=== PATIENT | female | born 1995 | race Caucasian/White ===

== ENCOUNTER 2022-01-29 22:06 | Observation (INO) | payer MEDICAID, SELFPAY ==
[2022-01-29 22:06] VITALS: BP 108/72; PULSE 78; RESP 16; TEMP 36.6; O2SAT 99; BMI 25.0
--- NOTE | 2022-01-29 22:16 | EDS_ITS ---
HPI History of Present Illness Chief Complaint: Substance Abuse Detail of Chief Complaint: Requesting detox from heroin Informant: patient Narrative Narrative: Patient requests help with detox from heroin. She has been shooting up heroin daily for the last 2 months. She was clean for 2 months prior to that. Last use was at noon today. She denies feeling any withdrawal symptoms at this time. [facility] Medical History HIV (human immunodeficiency virus infection) Home Medications cabotegravir-rilpivirine [Cabenuva] 0 ml IM .COMPLEX 01/29/22 [History Last Taken Unknown] Allergy/AdvReac Type Severity Reaction Status Date / Time No Known Allergies Allergy Verified 01/29/22 22:08 Social History (Updated 01/29/22 @ 22:[address] Talya Plasencia MD) Smoking Status: Never smoker substance use type: heroin ROS ROS ED Constitutional Constitutional ED: Denies chills or fever(s) Eyes Eyes: Denies change in vision ENT ENT ED: Denies sore throat Cardiovascular Cardiovascular: Denies chest pain Respiratory/Chest Respiratory/Chest: Denies cough or dyspnea Gastrointestinal Gastrointestinal: Denies abdominal pain, nausea or vomiting Genitourinary Genitourinary ED: Reports LMP (females 10-50) Details: Comment: (Current); Denies dysuria Musculoskeletal Musculoskeletal: Denies back pain Integumentary Denies rash Neurologic Neurologic: Denies headache(s) or weakness Allergic/Immunologic Allergic/Immunologic ED: Denies urticaria EXAM Physical Exam Const Vital Signs: 01/29/22 22:06 Temperature 97.8 F Temperature Source Temporal Pulse Rate 78 Respiratory Rate 16 Blood Pressure 108/72 Blood Pressure Mean 84 Pulse Ox 99 Oxygen Delivery Method Room Air Positive well nourished and well developed General Appearance ED: well developed HEENT Reports moist mucous membranes atraumatic Eyes PERRL and EOMs intact bilaterally Neck supple Lymph Lymphatic: no lymphadenopathy noted Chest Wall inspection of chest normal and palpation of chest normal Resp normal respiratory effort and clear to auscultation bilaterally Cardio regular rate and regular rhythm GI soft to palpation Back/Spine no CVA tenderness Neuro oriented x3 and no sensory deficits noted Sensorium / Orientation: alert Motor Exam: strength 5/5 throughout Psych mental status grossly normal Skin Rashes: no rashes MDM MDM MDM Narrative Medical decision making narrative: Lab work for addiction medicine obtained. Patient discussed with hospitalist to admit the patient to [facility] for the detox program. Lab Data Labs: Laboratory Results - last 24 hr 01/29/22 01/29/22 01/29/22 22:45 22:45 22:45 WBC 5.6 RBC 4.58 Hgb 12.0 Hct 37.5 MCV 81.9 MCH 26.2 L MCHC 32.0 RDW Std Deviation 39.9 RDW Coeff of Ze 13.4 Plt Count 232 MPV 9.6 Immature Gran % (Auto) 0.400 Neut % (Auto) 63.1 Lymph % (Auto) 22.0 [place] % (Auto) 7.9 Eos % (Auto) 6.1 H Baso % (Auto) 0.5 Absolute Neuts (auto) 3.5 Absolute Lymphs (auto) 1.23 Nucleated RBC % 0 Serum , Qual NEGATIVE Ur Drug Screen Comment Discharge Plan Triage Chief Complaint: Substance Abuse ED Provider: Talya Plasencia Dx/Rx/DC Orders Clinical Impression: Desire for detoxification, Heroin abuse Prescriptions: No Action Cabenuva 600 mg/3 mL- 900 mg/3 mL Suspension,Extended Release 0 ml IM .COMPLEX RF: 0 Primary Care Provider: Care Physician,No Primary Referrals: Care Physician,No Primary [Primary Care Provider] - Disposition Disposition: [facility] Care [facility]
[2022-01-29 22:57] LABS: Absolute Lymphocyte Count 1.23 X10^3/uL (0.83-4.51); Absolute Neutrophil Count 3.5 X10^3/uL (2.0-7.7); Basophil# 0.03 X10^3/uL; Basophil% 0.5 % (0-1); Eosinophil# 0.34 X10^3/uL; Eosinophils% 6.1 % (0-5); Hematocrit 37.5 % (37-47); Lymphocyte # 1.23 X10^3/ul (0.83-4.51); Mean Corpuscular Hgb 26.2 pg (27.0-32.0); Mean Corpuscular Volume 81.9 fL (81-99); Mean Platelet Vol. 9.6 fl (6.2-12.0); Monocyte# 0.44 X10^3/uL; Monocyte% 7.9 % (0-10); NRBC Flagged by Analyzer 0 % (0-5); Neutrophil # 3.54 X10^3/uL (2.7-7.7); Neutrophil % 63.1 % (47-70); Platelet Count 232 K/mm3 (150-450); RBC Distribution Width CV 13.4 % (11.6-14.6); RBC Distribution Width SD 39.9 fl (35.1-43.9); Red Blood Count 4.58 M/mm3 (4.2-5.4); White Blood Count 5.6 K/mm3 (4.4-11.0)
--- NOTE | 2022-01-29 22:57 | HP.PCM.HOS_ITS ---
HPI - General General Date of Admission: 01/29/22 Date of Service: 01/29/22 Chief Complaint: Opiate abuse, detox request. HPI Narrative The patient is a 26 y/o F w/ PMHx: Anxiety, HIV on antiviral regimen, Hepatitis C (treated), Polysubstance abuse including IV heroin 3 gm daily who presents to the [facility] ED on 01/29/22 with history of impending acute opiate withdrawal onset starting this evening following last dose at ~ noon on day of presentation with abdominal pain/cramping, generalized body aches and pains, fatigue, restless legs and agitation. Patient interested in attaining clean status. She notes having been through detox programs x 3 with most recent 4 months prior to current presentation in [facility] with clean status following x 2 months with relapse. Patient states previously she has been using drugs with her boyfriend who is also a substance user. She notes that they are currently not together because of her plans to be in a prolonged treatment program. Work-up in the ED included T97.8, heart rate 78, BP 108/72, respiratory rate 16, 99% on room air, CBC with WC 5.6, hemoglobin 12, platelet 232 without marked shift, CMP not marked appearing, serum negative, UDS with positive opiates, amphetamine, MDMA, cocaine, without alcohol less than 3. [facility] Medical History (Updated 01/30/22 @ 00:[address] Karina Correia MD) Anxiety Former tobacco use Hepatitis C HIV (human immunodeficiency virus infection) Substance abuse Home Medications cabotegravir-rilpivirine [Cabenuva] 0 ml IM .COMPLEX 01/29/22 [History Last Taken Unknown] Allergy/AdvReac Type Severity Reaction Status Date / Time No Known Allergies Allergy Verified 01/29/22 22:08 other (Patient denies any marked maternal or paternal family history including HD, DM, CA.) Surgical History (Updated 01/30/22 @ 00:[address] Karina Correia MD) No history of previous surgery Social History (Updated 01/30/22 @ 00:[address] Karina Correia MD) household members: other details: Living with her parents. Smoking Status: Former smoker how long ago did patient quit smoking: Quit 3 years prior, prior to this 1/2 ppd since teen. alcohol intake: never substance use type: crack/cocaine, heroin, amphetamines, opiates, IV drugs and other details: Currently reports primarily 3 gm daily heroin. ROS ROS Narrative Admission Review of Systems: CONSTITUTIONAL: No weight loss, fever, chills, + weakness or fatigue. HEENT: + Rhinorrhea. Eyes: No visual loss, blurred vision, double vision or yellow sclerae. Ears, Nose, Throat: No hearing loss, sneezing, congestion or sore throat. SKIN: + Several track ramos and skin abrasions. CARDIOVASCULAR: No chest pain, chest pressure or chest discomfort, palpitations, edema, orthopnea, syncopal events. RESPIRATORY: No shortness of breath, cough or sputum, wheezing, hemoptysis. GASTROINTESTINAL: + anorexia, abdominal cramping, No nausea, vomiting or diarrhea, melena, BRBPR. GENITOURINARY: No dysuria, frequency, urgency or retention. NEUROLOGICAL: No headache, dizziness, syncope, paralysis, ataxia, numbness or tingling in the extremities, focal weakness, change in bowel or bladder control, seizure. MUSCULOSKELETAL: + muscle, back pain, joint pain or stiffness. HEMATOLOGIC: No anemia, bleeding or bruising. LYMPHATICS: No enlarged nodes. No history of splenectomy. PSYCHIATRIC: + history of depression or anxiety. ENDOCRINOLOGIC: No reports of sweating, cold or heat intolerance. No polyuria or polydipsia. ALLERGIES: No history of asthma, hives, eczema or rhinitis. Vital Signs Vital Signs Vital Signs: 01/29/22 22:06 Temperature 97.8 F Temperature Source Temporal Pulse Rate 78 Respiratory Rate 16 Blood Pressure 108/72 Blood Pressure Mean 84 Pulse Ox 99 Oxygen Delivery Method Room Air Weight Weight: 150 lb Body Mass Index (BMI) 25.0 Physical Exam Narrative Physical Examination: General: Awake, alert, oriented x 3 and cooperative, seated upright in the ED bed, fatigued, yawning Skin: Normal color, normal turgor, no icterus, no cyanosis except significant very staged track ramos on the extremities. HEENT: AT/NC, EOMI, PERRLA, moderately dry MM, no carotid bruits or JVD noted. Lungs: Diminished, greater bases, appropriate effort, no rales, ronchi or wheezing. Heart: Currently regular rate and rhythm; no gallop, rub audible. Abdomen: Soft, mild generalized discomfort with palpation but no rebound or guarding, ND, mildly hyperactive BS, no HSM. Extremities: No cyanosis, clubbing, or edema. Neurological: Patient awake, alert, oriented as noted, cognitive function in tact; pupils equally reactive to light and accommodation, cranial nerves II-XII grossly normal, moving all 4 extremities, no focal deficits, strength preserved, fatigued appearing, mildly restless. Psychiatric: Affect appears restless, fatigued appearing, no acute evidence of depressive or anxiety feelings but underlying history. Results Lab / Micro Data Result Diagrams: 01/29/22 22:45 01/29/22 22:45 Labs: Laboratory Results - last 24 hr 01/29/22 22:45: WBC 5.6, RBC 4.58, Hgb 12.0, Hct 37.5, MCV 81.9, MCH 26.2 L, MCHC 32.0, RDW Std Deviation 39.9, RDW Coeff of Ze 13.4, Plt Count 232, MPV 9.6, Immature Gran % (Auto) 0.400, Neut % (Auto) 63.1, Lymph % (Auto) 22.0, [place] % (Auto) 7.9, Eos % (Auto) 6.1 H, Baso % (Auto) 0.5, Absolute Neuts (auto) 3.5, Absolute Lymphs (auto) 1.23, Nucleated RBC % 0 01/29/22 22:45: Ur Drug Screen Comment Assessment & Plan Assessment/Plan (1) Desire for detoxification: (2) Heroin abuse: PLAN: The patient is a 26 y/o F w/ PMHx: Anxiety, HIV on antiviral regimen, Hepatitis C (treated), Polysubstance abuse including IV heroin 3 gm daily who presents to the [facility] ED on 01/29/22 with history of impending acute opiate withdrawal onset starting this evening following last dose at ~ noon on day of presentation. #1. Acute Opiate Withdrawal: Will admit to [facility], routine labs including CBC, CMP, urine for drug screen obtained in the ED as noted, will initiate and continue on protocol with tapering course of Subutex, as needed tylenol, ibuprofen, bowel regimen, gabapentin, Bentyl, Vistaril, methocarbamol, clonidine, PRN nightly trazodone for insomnia, IV fluids, IV antiemetics. Once patient clinically improved and completion of taper nearing will plan consultation with case management for transition to next level of rehabilitation care. #2. Polysubstance Abuse, IVDA ongoing, History of Hepatitis C, Chronic as well as HIV: Patient from list is on chronic IM antiviral regimen, need to clarify when last used, reports having been treated for hepatitis C in addition, amenable to hepatitis panel to assure no hepatitis B coinfection, pending. Encourage continued outpatient follow-up with ID. #3. Former tobacco use: Encourage continued tobacco cessation. #4. DVT prophylaxis: Low risk, encourage ambulation. Charges/Coding Visit Charges Inpatient E&M: 80941 Init Hosp L2
[2022-01-29 23:06] LABS: Internal QC Validated? YES +Cl - CLEAR BKGD; Pregnancy, Serum, hCG Quali. NEGATIVE Negative
[2022-01-29 23:15] LABS: ALB/GLOB Ratio 0.7 RATIO (0.9-2.4); AST(SGOT) 19 U/L (15-37); Alanine Aminotransfer ALT/SGPT 22 U/L (13-56); Albumin, Serum 3.2 g/dL (3.2-5.0); Alkaline Phosphatase 113 U/L (45-117); Anion Gap 6 (5-15); BUN 17 mg/dL (7-18); BUN/Creat Ratio 20.4 RATIO (10-20); Calcium,Total 8.5 mg/dL (8.5-10.1); Chloride 105 mmol/L (98-107); Creatinine, Serum 0.83 mg/dL (0.55-1.02); EST Glomerular Filtration Rate 88 mL/min (>60); Est Glom Filt Rate - Afr Amer 106 mL/min (>60); Estimated Creatinine Clearance 92.42 ml/min; Globulin 4.3 g/dL (2.2-4.2); Glucose 83 mg/dL (74-106); Potassium 3.9 mmol/L (3.5-5.1); Protein, Total 7.5 g/dL (6.4-8.2); Sodium Level 138 mmol/L (136-145)
[2022-01-29 23:16] LABS: Amphetamine Urine VISTA POSITIVE (<1000 ng/mL); Barbiturate Urine VISTA NEGATIVE (< 200 ng/mL); Benzodiazepine Urine VISTA NEGATIVE (< 200 ng/mL); Cocaine Urine VISTA POSITIVE (< 300 ng/mL); Ecstacy Urine VISTA POSITIVE (< 500 ng/mL); Methadone Urine VISTA NEGATIVE (< 300 ng/mL); PCP Urine VISTA NEGATIVE (< 25 ng/mL); THC Urine VISTA NEGATIVE (< 50 ng/mL); Vista UDS pH Range 5
[2022-01-29 23:27] LABS: Alcohol, Blood (Medical)-Serum < 3.0 mg/dL
[2022-01-29 23:59] VITALS: BP 99/63; PULSE 71; RESP 18; TEMP 36.8; O2SAT 99
[2022-01-30] VITALS (8 sets, daily range): BP systolic 92–140; BP diastolic 47–76; PULSE 64–87; RESP 16–20; TEMP 36.6–36.8; O2SAT 92–99; BMI 25.0
[2022-01-30] MEDS: traZODone 100 MG Tablet PO (00:37)
[2022-01-30 06:44] LABS: Absolute Lymphocyte Count 1.55 X10^3/uL (0.83-4.51); Absolute Neutrophil Count 2.6 X10^3/uL (2.0-7.7); Basophil# 0.03 X10^3/uL; Basophil% 0.6 % (0-1); Eosinophil# 0.31 X10^3/uL; Eosinophils% 6.1 % (0-5); Hematocrit 33.1 % (37-47); Hemoglobin 10.3 g/dL (12.0-15.0); Lymphocyte # 1.55 X10^3/ul (0.83-4.51); Lymphocyte % 30.6 % (19-41); Mean Corp Hgb Conc 31.1 g/dL (32-36); Mean Corpuscular Hgb 25.3 pg (27.0-32.0); Mean Corpuscular Volume 81.3 fL (81-99); Mean Platelet Vol. 9.7 fl (6.2-12.0); Monocyte% 11.9 % (0-10); NRBC Flagged by Analyzer 0 % (0-5); Neutrophil # 2.56 X10^3/uL (2.7-7.7); Neutrophil % 50.6 % (47-70); Platelet Count 225 K/mm3 (150-450); RBC Distribution Width CV 13.6 % (11.6-14.6); RBC Distribution Width SD 39.8 fl (35.1-43.9); Red Blood Count 4.07 M/mm3 (4.2-5.4); White Blood Count 5.1 K/mm3 (4.4-11.0)
[2022-01-30 07:29] LABS: ALB/GLOB Ratio 0.8 RATIO (0.9-2.4); AST(SGOT) 19 U/L (15-37); Alanine Aminotransfer ALT/SGPT 18 U/L (13-56); Albumin, Serum 2.8 g/dL (3.2-5.0); Alkaline Phosphatase 97 U/L (45-117); Anion Gap 7 (5-15); BUN 15 mg/dL (7-18); BUN/Creat Ratio 18.2 RATIO (10-20); Chloride 105 mmol/L (98-107); Creatinine, Serum 0.82 mg/dL (0.55-1.02); EST Glomerular Filtration Rate 89 mL/min (>60); Est Glom Filt Rate - Afr Amer 107 mL/min (>60); Estimated Creatinine Clearance 89.78 ml/min; Globulin 3.7 g/dL (2.2-4.2); Glucose 98 mg/dL (74-106); Potassium 3.4 mmol/L (3.5-5.1); Protein, Total 6.5 g/dL (6.4-8.2); Sodium Level 138 mmol/L (136-145)
--- NOTE | 2022-01-30 09:14 | PN.HOSP_ITS ---
Subjective Subjective No issues overnight, resting comfortably. Cina score of 0 Objective Data Objective Data Vital Signs: Vital Signs Temp Pulse Resp BP Pulse Ox 98.1 F 67 16 92/53 L 94 01/30/22 08:55 01/30/22 08:55 01/30/22 08:55 01/30/22 08:55 01/30/22 08:55 Oxygen Delivery Method Room Air Weight: 149 lb 14.629 oz Body Mass Index (BMI) 25.0 Lab / Micro Data Result Diagrams: 01/30/22 06:16 01/30/22 06:16 Labs: Laboratory Results - last 24 hr 01/29/22 22:45: WBC 5.6, RBC 4.58, Hgb 12.0, Hct 37.5, MCV 81.9, MCH 26.2 L, MCHC 32.0, RDW Std Deviation 39.9, RDW Coeff of Ze 13.4, Plt Count 232, MPV 9.6, Immature Gran % (Auto) 0.400, Neut % (Auto) 63.1, Lymph % (Auto) 22.0, [place] % (Auto) 7.9, Eos % (Auto) 6.1 H, Baso % (Auto) 0.5, Absolute Neuts (auto) 3.5, Absolute Lymphs (auto) 1.23, Nucleated RBC % 0 01/29/22 22:45: Sodium 138, Potassium 3.9, Chloride 105, Carbon Dioxide 27.0, Anion Gap 6, BUN 17, Creatinine 0.83, Estim Creat Clear Calc 92.42, Est GFR (MDRD) Af Amer 106, Est GFR (MDRD) Non-Af 88, BUN/Creatinine Ratio 20.4 H, Glucose 83, Calcium 8.5, Total Bilirubin 0.30, AST 19, ALT 22, Alkaline Phosphatase 113, Total Protein 7.5, Albumin 3.2, Globulin 4.3 H, Albumin/Globulin Ratio 0.7 L 01/29/22 22:45: Ethyl Alcohol < 3.0 01/29/22 22:45: Urine Opiates Screen POSITIVE H, Urine Methadone Screen NEGA TIVE, Ur Barbiturates Screen NEGATIVE, Ur Phencyclidine Scrn NEGATIVE, Ur Amphetamines Screen POSITIVE H, MDMA (Ecstasy) Screen POSITIVE H, U Benzodiazepi melissa Scrn NEGATIVE, Urine Cocaine Screen POSITIVE H, U Cannabinoids Screen NEG ATIVE, Ur Drug Screen Comment 01/29/22 22:45: Serum , Qual NEGATIVE 01/30/22 06:16: WBC 5.1, RBC 4.07 L, Hgb 10.3 L, Hct 33.1 L, MCV 81.3, MCH 25.3 L, MCHC 31.1 L, RDW Std Deviation 39.8, RDW Coeff of Ze 13.6, Plt Count 225, M PV 9.7, Immature Gran % (Auto) 0.200, Neut % (Auto) 50.6, Lymph % (Auto) 30.6, [place] % (Auto) 11.9 H, Eos % (Auto) 6.1 H, Baso % (Auto) 0.6, Absolute Neuts (auto) 2.6, Absolute Lymphs (auto) 1.55, Nucleated RBC % 0 01/30/22 06:16: Sodium 138, Potassium 3.4 L, Chloride 105, Carbon Dioxide 26.0, Anion Gap 7, BUN 15, Creatinine 0.82, Estim Creat Clear Calc 89.78, Est GFR (MDRD) Af Amer 107, Est GFR (MDRD) Non-Af 89, BUN/Creatinine Ratio 18.2, Glucose 98, Calcium 8.0 L, Total Bilirubin 0.20, AST 19, ALT 18, Alkaline Phosphatase 97, Total Protein 6.5, Albumin 2.8 L, Globulin 3.7, Albumin/Globulin Ratio 0.8 L Physical Exam Const alert, oriented x3 and no apparent distress General Appearance: cooperative HEENT normocephalic and moist oral mucous membranes Eyes PERRL, EOMs intact bilaterally and conjunctivae normal Neck supple and no JVD Resp normal respiratory effort, no retractions, no use of accessory muscles and clear to auscultation bilaterally Auscultation: Negative for crackles, rales, rhonchi or wheezes Cardio regular rate, regular rhythm, S1 normal heart sound, S2 normal heart sound and no murmurs GI soft to palpation, non-tender and non-distended; Negative for hepatosplenomegaly Extremity no clubbing, cyanosis or edema Skin no rashes or lesions noted Neuro no focal motor deficits and no sensory deficits noted Psych affect normal Appearance: appropriate Assessment & Plan Assessment/Plan (1) Desire for detoxification: (2) Heroin abuse: PLAN: 1. Acute opiate withdrawal/polysubstance abuse/history of hepatitis C/HIV ? She states that she has been treated for hepatitis C ? Continue with the opiate withdrawal protocol ? Unsure as to when she last took her HIV medication however it is an IM injec tion twice a month ? Follow-up with [facility] to discuss either outpatient management or inpatient management DVT: Ambulation Charges/Coding Visit Charges Inpatient E&M: 55629 Subs Hosp L2
[2022-01-30] MEDS: Albuterol 2.5 MG/3 ML VIAL.NEB. INHALATION (13:24)
[2022-01-31] VITALS (10 sets, daily range): BP systolic 99–114; BP diastolic 60–70; PULSE 63–99; RESP 16–18; TEMP 36.6–36.9; O2SAT 93–99
[2022-01-31] MEDS: Albuterol 2.5 MG/3 ML VIAL.NEB. INHALATION ×3 (07:31→13:50)
--- NOTE | 2022-01-31 08:25 | PCM.PN.HOSP ---
Subjective Subjective Doing well, no issues overnight. Cina score of 2 Objective Data Objective Data Vital Signs: Vital Signs Temp Pulse Resp BP Pulse Ox 98.4 F 74 18 100/64 95 01/31/22 04:41 01/31/22 07:31 01/31/22 07:31 01/31/22 04:41 01/31/22 07:31 Oxygen Delivery Method Room Air Weight: 149 lb 14.629 oz Body Mass Index (BMI) 25.0 Lab / Micro Data Result Diagrams: 01/30/22 06:16 01/30/22 06:16 Physical Exam Narrative Const alert, oriented x3 and no apparent distress General Appearance: cooperative HEENT normocephalic and moist oral mucous membranes Eyes PERRL, EOMs intact bilaterally and conjunctivae normal Neck supple and no JVD Resp normal respiratory effort, no retractions, no use of accessory muscles and clear to auscultation bilaterally Auscultation: Negative for crackles, rales, rhonchi or wheezes Cardio regular rate, regular rhythm, S1 normal heart sound, S2 normal heart sound and no murmurs GI soft to palpation, non-tender and non-distended; Negative for hepatosplenomegaly Extremity no clubbing, cyanosis or edema Skin no rashes or lesions noted Neuro no focal motor deficits and no sensory deficits noted Psych affect normal Appearance: appropriate Assessment & Plan Assessment/Plan (1) Desire for detoxification: (2) Heroin abuse: PLAN: 1. Acute opiate withdrawal/polysubstance abuse/history of hepatitis C/HIV ? She states that she has been treated for hepatitis C ? Continue with the opiate withdrawal protocol ?States that she took her HIV medication about 2 weeks ago when she takes it every 2 months ?She states that she is opted for inpatient rehab with [facility] DVT: Ambulation Charges/Coding Visit Charges Inpatient E&M: 40031 Subs Hosp L2
[2022-01-31] MEDS: hydrOXYzine PAM 25 MG Capsule 50 MG PO ×2 (14:05→20:05)
[2022-01-31] MEDS: Buprenorphine HCl 2 MG TAB.SUBL 4 MG SL ×2 (14:07→22:02)
[2022-01-31] MEDS: Ibuprofen 600 MG Tablet PO (15:37)
[2022-01-31] MEDS: cloNIDine HCl 0.1 MG Tablet PO (15:37)
[2022-01-31] MEDS: Gabapentin 300 MG Capsule PO (15:37)
[2022-01-31] MEDS: Methocarbamol 750 MG Tablet 1500 MG PO (15:37)
[2022-01-31] MEDS: traZODone 100 MG Tablet PO (23:10)
[2022-02-01] MEDS: hydrOXYzine PAM 25 MG Capsule 50 MG PO ×3 (01:36→10:36)
[2022-02-01 02:00] VITALS: BP 102/63; PULSE 72; RESP 16; TEMP 37.2; O2SAT 98
[2022-02-01 05:41] VITALS: BP 94/65; PULSE 70; RESP 16; TEMP 37.1; O2SAT 97
[2022-02-01] MEDS: Buprenorphine HCl 2 MG TAB.SUBL 4 MG SL ×2 (05:43→13:38)
[2022-02-01 10:30] VITALS: BP 107/70; PULSE 68; RESP 16; TEMP 36.8; O2SAT 99
[2022-02-01] MEDS: Dicyclomine 10 MG Capsule 20 MG PO (10:35)
[2022-02-01] MEDS: Methocarbamol 750 MG Tablet 1500 MG PO (10:35)
[2022-02-01] MEDS: Gabapentin 300 MG Capsule PO (10:36)
[2022-02-01 11:00] VITALS: O2SAT 98
--- NOTE | 2022-02-01 11:00 | PCM.PN.HOSP ---
Subjective Subjective Doing well awaiting admission to inpatient rehab Objective Data Objective Data Vital Signs: Vital Signs Temp Pulse Resp BP Pulse Ox 98.8 F 70 16 94/65 97 02/01/22 05:41 02/01/22 05:41 02/01/22 05:41 02/01/22 05:41 02/01/22 05:41 Oxygen Delivery Method Room Air Weight: 149 lb 14.629 oz Body Mass Index (BMI) 25.0 Lab / Micro Data Result Diagrams: 01/30/22 06:16 01/30/22 06:16 Physical Exam Const alert, oriented x3 and no apparent distress General Appearance: cooperative HEENT normocephalic and moist oral mucous membranes Eyes PERRL, EOMs intact bilaterally and conjunctivae normal Neck supple and no JVD Resp normal respiratory effort, no retractions, no use of accessory muscles and clear to auscultation bilaterally Auscultation: Negative for crackles, rales, rhonchi or wheezes Cardio regular rate, regular rhythm, S1 normal heart sound, S2 normal heart sound and no murmurs GI soft to palpation, non-tender and non-distended; Negative for hepatosplenomegaly Extremity no clubbing, cyanosis or edema Skin no rashes or lesions noted Neuro no focal motor deficits and no sensory deficits noted Psych affect normal Appearance: appropriate Assessment & Plan Assessment/Plan (1) Desire for detoxification: (2) Heroin abuse: PLAN: 1. Acute opiate withdrawal/polysubstance abuse/history of hepatitis C/HIV ? She states that she has been treated for hepatitis C ? Continue with the opiate withdrawal protocol ?States that she took her HIV medication about 2 weeks ago when she takes it every 2 months ?She states that she is opted for inpatient rehab with [facility] awaiting whether admission can be achieved today or tomorrow. DVT: Ambulation Charges/Coding Visit Charges Inpatient E&M: 94143 Subs Hosp L2
--- NOTE | 2022-02-01 12:10 | ADDICTION ---
This television writer met with PT to conduct ASAM, MSE, AUDIT, DUDIT assessments and to plan for d/c. PT A+Ox4 and participated actively. All assessments completed, and placed in PT's chart. PT plans to f/u with individual counselor at [facility] for follow-up counseling services. [facility] will provide transportation post d/c from [facility] at 2:00pm today.
[2022-02-01 13:43] VITALS: BP 96/62; PULSE 62; RESP 16; TEMP 36.9; O2SAT 98
--- NOTE | 2022-02-01 13:50 | PCM.DC ---
Discharge Instructions Diet Discharge Diet: No restrictions Activity Discharge Activity: Return to Normal Activity Dressing / Incision Call your doctor if you observe: Fever of 101 or Higher, Shortness of breath, Dizziness, Fainting spells, Swelling in the ankles, Chest pain and Increased palpitations (irregular heartbeat) Follow Up Care Test Results: Test results from this visit will be discussed in further detail at your follow-up appointment, if applicable. Discharge Plan Admission Admit Date/Time: 01/29/22 22:57 Attending Provider: Roc Matthews Primary Care Provider: Care Physician,No Primary Consulting Providers: Karina Correia Discharge Orders/Prescriptions Prescriptions: Continued Cabenuva 600 mg/3 mL- 900 mg/3 mL Suspension,Extended Release 0 ml IM .COMPLEX RF: 0 Referrals / Follow Up: Care Physician,No Primary [Primary Care Provider] - Disposition Disposition (needs filled in before D/C Order can be placed): Transfer to Another Type HCF
--- NOTE | 2022-02-01 14:13 | PCM.DC.SUM ---
Providers Date of Admission: 01/29/22 Primary Care Physician: No Primary Care Phys Reason For Visit: OPIATE WITHDRAWAL, ABUSE Diagnosis Discharge Diagnosis (1) Desire for detoxification: Status: Acute (2) Heroin abuse: Status: Acute Code(s): F11.10 - Opioid abuse, uncomplicated Medications at Discharge Home Medications Cabenuva 0 ml IM .COMPLEX 01/29/22 Hospital Course Operations None Procedures None Summary of Care Provided Minutes Spent on Discharge: 37 Hospital Course: Per HPI: The patient is a 26 y/o F w/ PMHx: Anxiety, HIV on antiviral regimen, Hepatitis C (treated), Polysubstance abuse including IV heroin 3 gm daily who presents to the [facility] ED on 01/29/22 with history of impending acute opiate withdrawal onset starting this evening following last dose at ~ noon on day of presentation with abdominal pain/cramping, generalized body aches and pains, fatigue, restless legs and agitation. Patient interested in attaining clean status. She notes having been through detox programs x 3 with most recent 4 months prior to current presentation in [facility] with clean status following x 2 months with relapse. Patient states previously she has been using drugs with her boyfriend who is also a substance user. She notes that they are currently not together because of her plans to be in a prolonged treatment program. Work-up in the ED included T97.8, heart rate 78, BP 108/72, respiratory rate 16, 99% on room air, CBC with WC 5.6, hemoglobin 12, platelet 232 without marked shift, CMP not marked appearing, serum negative, UDS with positive opiates, amphetamine, MDMA, cocaine, without alcohol less than 3. Hospital Course: 1. Acute opiate withdrawal/polysubstance abuse/history of hepatitis C/HIV?26-year-old female presented to the hospital requesting opiate detox. Her last dose was at noon on the day of admission she presented in the evening with the onset of withdrawal symptoms. She has been through multiple detox program and had been clean after her last one for about 2months prior to her relapse. She tolerated the opiate withdrawal protocol well and in discussion with [facility] counselor, she felt like she would get the most benefit from going inpatient. She was accepted to the inpatient program today and therefore was discharged. She is HIV positive and takes Cabenuva every 2 months, she thinks that her last dose was about 2 weeks prior to admission, but this will need to be clarified. I discussed with her the plan for discharge today she expressed understanding of the risk benefits of going to rehab and would like to go today. Weight / BMI Weight Weight: 149 lb 14.629 oz Body Mass Index (BMI) 25.0 ABG / Lab / Microbiology Data Result Diagrams: 01/30/22 06:16 01/30/22 06:16 D/C Instructions Discharge Diet: No restrictions Call your doctor if you observe: Fever of 101 or Higher, Shortness of breath, Dizziness, Fainting spells, Swelling in the ankles, Chest pain and Increased palpitations (irregular heartbeat) Meaningful Use Info Meaningful Use Diagnoses (Choose all that apply): None applicable Discharge Plan Admission Admit Date/Time: 01/29/22 22:57 Attending Provider: Roc Matthews Primary Care Provider: Care Physician,No Primary Consulting Providers: Karina Correia Discharge Orders/Prescriptions Prescriptions: Continued Cabenuva 600 mg/3 mL- 900 mg/3 mL Suspension,Extended Release 0 ml IM .COMPLEX RF: 0 Referrals / Follow Up: Care Physician,No Primary [Primary Care Provider] - Disposition Disposition (needs filled in before D/C Order can be placed): Transfer to Another Type HCF Charges/Coding Visit Charges Inpatient E&M: 21293 Disch Hosp
== END 2022-02-01 14:05 | disposition other institution (70) | DRG 772 ==
LOC: ED 23:16 → MS3 01-30 07:01
PROVIDERS: Admitting Provider Family Medicine; Emergency Provider Emergency Medicine; Visit Provider Family Medicine
DX: F11.23 Opioid dependence with withdrawal (principal); Z21 Asymptomatic human immunodeficiency virus [HIV] infection status; F14.10 Cocaine abuse, uncomplicated; F19.10 Other psychoactive substance abuse, uncomplicated; F15.10 Other stimulant abuse, uncomplicated; F14.90 Cocaine use, unspecified, uncomplicated; Z87.891 Personal history of nicotine dependence; Z79.899 Other long term (current) drug therapy; Z86.19 Personal history of other infectious and parasitic diseases
CPT/HCPCS: 36415; 80053; 80307; 82077; 84703; 85025; 94640; 99283; H0012; J7030